=== PATIENT | male | born 1980 | race Hispanic/Latino ===

== ENCOUNTER 2017-10-07 13:35 | Emergency (ER) | payer OTHER ==
[2017-10-07] MEDS ORDERED: IBUPROFEN 600 MG TABLET ONE (13:56)
== END 2017-10-07 15:09 | disposition home or self-care (01) ==
LOC: EDH 13:35
DX: S93.491A Sprain of other ligament of right ankle, initial encounter (principal); Z88.0 Allergy status to penicillin; X50.0XXA Overexertion from strenuous movement or load, initial encounter; Y93.39 Activity, other involving climbing, rappelling and jumping off; Y92.89 Other specified places as the place of occurrence of the external cause; Y99.8 Other external cause status
CPT/HCPCS: 29515; 73610; 73620